=== PATIENT | female | born 1960 | race Caucasian/White ===

== ENCOUNTER 2019-10-27 03:36 | Emergency (ER) | payer BC ==
[2019-10-27] MEDS: Ketorolac 60 MG/2 ML SDV IM ONE (04:23)
[2019-10-27] MEDS: Acetaminophen/oxyCODONE 325-5 MG Tab PO STA (04:23)
[2019-10-27] MEDS: Cyclobenzaprine 10 MG Tab PO ONE (04:24)
--- NOTE | 2019-10-27 05:21 | EDM.PDOC ---
ED HPI GENERAL MEDICAL PROBLEM - General Chief Complaint: Upper Extremity Injury/Pain Stated Complaint: BACK PAIN Time Seen by Provider: 10/27/19 03:40 Source of Information: Reports: Patient History Limitations: Reports: No Limitations - History of Present Illness INITIAL COMMENTS - FREE TEXT/NARRATIVE: Patient presented to the ED because of bilateral rib pain and upper back pain. She tripped and fell 6 days ago but she is able to cath herself before falling. She went to see the chiro yesterday and took 2 hydro 5/325 prescribed by her provider for her hip pain but didn't provide any relief. The pain is 10/10 and is worse with breathing and movements. posterior chest/rib Pain Score (Numeric/FACES): 10 - Related Data Allergies Allergy/AdvReac Type Severity Reaction Status Date / Time ciprofloxacin [From Cipro] Allergy Cannot Verified 10/27/19 03:51 Remember ciprofloxacin HCl Allergy Cannot Verified 10/27/19 03:51 [From Cipro] Remember Home Meds: Home Meds Albuterol Sulfate [Albuterol Sulfate HFA] 18 gm IH 06/23/13 [History] Estrogen,Con/M-Progest Acet [Prempro 0.45-1.5 MG] 1 each PO DAILY 06/23/13 [ History] Fluticasone/Salmeterol [Advair 250-50 Diskus] 2 puff INH BID 06/23/13 [History] Cyclobenzaprine [Flexeril] 10 mg PO TID PRN #15 tab 10/27/19 [Rx] Naproxen 500 mg PO BID #15 tablet 10/27/19 [Rx] Past Medical History Cardiovascular History: Reports: Hypertension 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 Social & Family History - Family History Family Medical History: Noncontributory - Tobacco Use Smoking Status *Q: Never Smoker Second Hand Smoke Exposure: No - Caffeine Use Caffeine Use: Reports: None - Recreational Drug Use Recreational Drug Use: No Review of Systems - Review of Systems Review Of Systems: See Below Constitutional: Reports: No Symptoms Ears: Reports: No Symptoms Nose: Reports: No Symptoms Mouth/Throat: Reports: No Symptoms Respiratory: Reports: No Symptoms Cardiovascular: Reports: No Symptoms Musculoskeletal: Reports: Back Pain Skin: Reports: No Symptoms Neurological: Reports: No Symptoms Psychiatric: Reports: No Symptoms ED EXAM, GENERAL - Physical Exam Exam: See Below Exam Limited By: No Limitations General Appearance: Alert, No Apparent Distress Nose: Normal Inspection, Normal Mucosa Throat/Mouth: Normal Inspection, Normal Lips Head: Atraumatic, Normocephalic Neck: Normal Inspection, Supple, Non-Tender Respiratory/Chest: No Respiratory Distress, Lungs Clear, Normal Breath Sounds Cardiovascular: Normal Peripheral Pulses, Regular Rate, Rhythm, No Edema, No Gallop GI/Abdominal: Normal Bowel Sounds, Soft, Non-Tender, No Organomegaly Back Exam: Muscle Spasm, Vertebral Tenderness Extremities: Normal Inspection, Normal Range of Motion Course - Vital Signs Text/Narrative:: chest/ribs/thoracic spine xray-neg toradol 60 mg IM x 1 percocet 5/325, 2 po x1 flexeril 10 mg po x1 Last Recorded V/S: Last Vital Signs Temp 36.7 C 10/27/19 03:45 Pulse 57 L 10/27/19 03:45 Resp 18 10/27/19 03:45 BP 211/98 H 10/27/19 03:45 Pulse Ox 95 10/27/19 03:45 - Orders/Labs/Meds Orders: Active Orders 24 hr Category Date Time Status Ribs 3V w Chest Bi [CR] Stat Exams 10/27/19 04:20 Taken Thoracic Spine 3V [CR] Stat Exams 10/27/19 04:14 Taken Meds: Medications Discontinued Medications Generic Name Dose Route Start Last Admin Trade Name Gary PRN Reason Stop Dose Admin Cyclobenzaprine HCl 10 mg 10/27/19 04:15 10/27/19 04:24 Flexeril PO 10/27/19 04:16 10 mg ONETIME ONE Administration Ketorolac Tromethamine 60 mg 10/27/19 04:15 10/27/19 04:23 Toradol IM 10/27/19 04:16 60 mg ONETIME ONE Administration Oxycodone/Acetaminophen 2 tab 10/27/19 04:15 10/27/19 04:23 Percocet 325-5 Mg PO 10/27/19 04:16 2 tab NOW STA Administration Departure - Departure Time of Disposition: 05:30 Disposition: Home, Self-Care 01 Condition: Good Clinical Impression: Thoracic sprain, Musculoskeletal pain - Discharge Information Prescriptions: Cyclobenzaprine [Flexeril] 10 mg PO TID PRN #15 tab PRN Reason: Muscle Spasm Naproxen 500 mg PO BID #15 tablet Referrals: Mary Jennings, MECHANICAL PRODUCT DESIGN ENGINEER [Primary Care Provider] - Additional Instructions: Please read discharge instructions on sprain and muscle pain Apply ice twice daily Naproxen 500 mg Twice daily for 7 days Flexeril 10 mg 3 times daily as needed for muscle spasm Hydrocodone 5/325, 1-2 tablets every 4-6 hours as needed for sever pain that you can't handle Follow up if symptoms persist Sepsis Event Note - Evaluation Sepsis Screening Result: No Definite Risk - Focused Exam Vital Signs: Vital Signs Temp Pulse Resp BP Pulse Ox 10/27/19 03:45 36.7 C 57 L 18 211/98 H 95 Date Exam was Performed: 10/27/19 Time Exam was Performed: 05:16 - My Orders Last 24 Hours: My Active Orders 10/27/19 04:14 Thoracic Spine 3V [CR] Stat 10/27/19 04:20 Ribs 3V w Chest Bi [CR] Stat - Assessment/Plan Last 24 Hours: My Active Orders 10/27/19 04:14 Thoracic Spine 3V [CR] Stat 10/27/19 04:20 Ribs 3V w Chest Bi [CR] Stat
[2019-10-27 05:23] VITALS: BP 168/87; PULSE 51
== END 2019-10-27 05:30 | disposition home or self-care (01) ==
LOC: FB.ED 03:36
DX: S23.3XXA Sprain of ligaments of thoracic spine, initial encounter (principal); J45.909 Unspecified asthma, uncomplicated; I10 Essential (primary) hypertension; Z88.1 Allergy status to other antibiotic agents; Z79.899 Other long term (current) drug therapy; W01.0XXA Fall on same level from slipping, tripping and stumbling without subsequent striking against object, initial encounter
CPT/HCPCS: 71111; 72072; 96372; 99283; A9270-GY; J1885

== ENCOUNTER 2020-04-05 16:14 | Inpatient (IN) | payer BC ==
[2020-04-05] MEDS ORDERED: REMDESIVIR 200 MG in Sodium Chloride 0.9% 250 ML IV ONE (17:03)
[2020-04-05] MEDS ORDERED: Albuterol 8 GM Inhaler INH PRN (17:08)
--- NOTE | 2020-04-05 17:15 | PCM.HP.2 ---
H&P History of Present Illness - General Date of Service: 04/05/20 Admit Problem/Dx: Admission Diagnosis/Problem Admission Diagnosis/Problem Viral infection Source of Information: Patient - History of Present Illness Initial Comments - Free Text/Narative: Tina started having sore throat, runny nose on 03/25, over the weekend developed vomiting and diarrhea which resolved Wednesday. Spoke with her PCP on Wednesday who advised her come in for drive-up COVID testing, her test results came back positive on 04/03. Had low grade fevers since last week, 99F but starting yesterday temp was up to 101F and seemed to break early this morning was 97F but then could feel it go up as day progressed. Since Wed pm she has been progressively getting more short of breath, wheezing, using her nebulizer treatments more often. Present to Walk-In clinic this afternoon, chest x-ray showed poor inspiration view but questionable infiltrate in right lower lobe. No other labs were done. She was saturating in the 80s in Walk-In, so direct admission to floor was done. History of Asthma. - Related Data Allergies/Adverse Reactions: Allergies Allergy/AdvReac Type Severity Reaction Status Date / Time ciprofloxacin [From Cipro] Allergy Cannot Verified 04/05/20 16:52 Remember ciprofloxacin HCl Allergy Cannot Verified 04/05/20 16:52 [From Cipro] Remember Home Medications: Home Meds Albuterol Sulfate [Albuterol Sulfate HFA] 2 puff IH Q4H PRN 06/23/13 [History] Lisinopril/Hydrochlorothiazide [Lisinopril-Hctz 20-25 mg Tab] 1 each PO DAILY 04/05/20 [History] Mometasone/Formoterol [Dulera 200 MCG/5 MCG] 2 inh INH DAILY 04/05/20 [History] Montelukast [Singulair] 10 mg PO BEDTIME 04/05/20 [History] Past Medical History Cardiovascular History: Reports: Hypertension 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 Social & Family History - Family History Family Medical History: No Pertinent Family History - Tobacco Use Tobacco Use Status *Q: Never Tobacco User - Caffeine Use Caffeine Use: Reports: None - Alcohol Use Days Per Week of Alcohol Use: 7 Number of Drinks Per Day: 3 Total Drinks Per Week: 21 Date of Last Drink: 03/22/20 - Recreational Drug Use Recreational Drug Use: No H&P Review of Systems - Review of Systems: Review Of Systems: Comprehensive ROS is negative, except as noted in HPI. Exam - Exam Exam: See Below - Vital Signs Weight: 171 lb 12.8 oz - Exam Quality Assessment: Supplemental Oxygen General: Alert, Oriented, Cooperative, Mild Distress HEENT: PERRLA, Conjunctiva Clear, Mucosa Moist & Helix Lungs: Normal Respiratory Effort, Decreased Breath Sounds (bibasilar), Crackles (RLL). No: Wheezing Cardiovascular: Regular Rate, Regular Rhythm. No: Systolic Murmur GI/Abdominal Exam: Normal Bowel Sounds, Soft, Non-Tender, No Distention (Female) Exam: Deferred Rectal (Female) Exam: Deferred Extremities: No Pedal Edema, Normal Capillary Refill - Problem List (1) COVID-19 virus detected SNOMED Code(s): 2881974166385131 ICD Code: U07.1 - COVID-19 Status: Acute Current Visit: Yes (2) Viral pneumonia SNOMED Code(s): 69024808 ICD Code: J12.9 - VIRAL PNEUMONIA, UNSPECIFIED Status: Acute Current Visit: Yes (3) Asthma SNOMED Code(s): 170570915 ICD Code: J45.909 - UNSPECIFIED ASTHMA, UNCOMPLICATED Status: Chronic Current Visit: Yes (4) Hypertension SNOMED Code(s): 74295442 ICD Code: I10 - ESSENTIAL (PRIMARY) HYPERTENSION Status: Chronic Current Visit: Yes Qualifiers: Hypertension type: essential hypertension Qualified Code(s): I10 - Essential (primary) hypertension (5) Seasonal allergies SNOMED Code(s): 090348186 ICD Code: J30.2 - OTHER SEASONAL ALLERGIC RHINITIS Status: Chronic Current Visit: Yes Problem List Initiated/Reviewed/Updated: Yes Orders Last 24hrs: Active Orders 24 hr Category Date Time Status Patient Status [ADT] Routine ADT 04/05/20 17:03 Ordered Blood Glucose Check, Bedside [RC] TIDMEALS Care 04/05/20 17:03 Ordered Nurse Communication: Isolation [RC] ASDIRECTED Care 04/05/20 17:04 Ordered Oxygen Therapy [RC] PRN Care 04/05/20 17:03 Ordered Positioning, Patient [RC] ASDIRECTED Care 04/05/20 17:03 Ordered RT Post Treatment Assessment [RC] Click to Edit Care 04/05/20 17:09 Ordered Up ad Susan [RC] ASDIRECTED Care 04/05/20 17:03 Ordered VTE/DVT Education [RC] Per Unit Routine Care 04/05/20 17:03 Ordered Vital Signs [RC] Q4H Care 04/05/20 17:03 Ordered Regular Diet [DIET] Diet 04/05/20 Dinner Ordered BASIC METABOLIC PANEL,BMP [CHEM] Stat Lab 04/05/20 17:03 Ordered CBC WITH AUTO DIFF [HEME] Stat Lab 04/05/20 17:03 Ordered D-DIMER QUANTITATIVE [COAG] Stat Lab 04/05/20 17:04 Ordered HEPATIC FUNCTION PANEL,HFP [CHEM] Stat Lab 04/05/20 17:03 Ordered Acetaminophen [TylenoL] Med 04/05/20 17:03 Ordered 650 mg PO Q4H PRN Albuterol [Ventolin HFA] Med 04/05/20 17:08 Ordered 2 puff INH Q4H PRN Enoxaparin [Lovenox] Med 04/05/20 17:15 Ordered 40 mg SUBCUT Q24H Lisinopril/Hydrochlorothiazide [Lisinopril-Hctz 20-25 Med 04/06/20 09:00 Ordered mg Tab] 1 each PO DAILY Mometasone/Formoterol [Dulera 200-5 MCG] Med 04/06/20 09:00 Ordered 2 puff IH DAILY Montelukast [Singulair] Med 04/05/20 21:00 Ordered 10 mg PO BEDTIME Remdesivir (Eua) [Remdesivir (EUA)] 100 mg Med 04/06/20 18:00 Ordered Sodium Chloride 0.9% [Normal Saline] 100 ml IV Q24H Remdesivir (Eua) [Remdesivir (EUA)] 200 mg Med 04/05/20 17:03 Ordered Sodium Chloride 0.9% [Normal Saline] 250 ml IV ONETIME Sodium Chloride 0.9% [Saline Flush] Med 04/05/20 17:03 Ordered 10 ml FLUSH ASDIRECTED PRN dexAMETHasone Med 04/05/20 17:15 Ordered 6 mg PO DAILY Antiembolic Hose [OM.PC] Per Unit Routine Oth 04/05/20 17:08 Ordered Isolation [COMM] Stat Ot 04/05/20 17:03 Ordered Saline Lock Insert [OM.PC] Routine Oth 04/05/20 17:03 Ordered Resuscitation Status Routine Resus Stat 04/05/20 17:03 Ordered Assessment/Plan Comment:: 1. Admit for inpatient treatment of COVID viral pneumonia: Remdesivir 200 mg IV x 1, 100 mg IV daily x 4 doses starting tomorrow. Dexamethasone 6 mg PO start now and in the morning. Oxygen therapy to keep sats >90%. Isolation precautions. CBC, CMP, D Dimer ordered. 2. Asthma: Continue Dulera daily and Albuterol as needed. 3. Seasonal allergies: continue Singulair 10 mg at bedtime. 4. Hypertension: continue Lisinopril/HCTZ 20/25 mg daily. 5. Regular diet. 6. Up ad susan in room. 7. DVT prophylaxis: Lovenox 40 mg SQ daily while awaiting D Dimer results. 8. CODE STATUS: FULL. - Mortality Measure Prognosis:: Good
[2020-04-05] MEDS: Dexamethasone 4 MG Tab PO SCH (18:19)
[2020-04-05] MEDS: Enoxaparin 40 MG/0.4 ML Syringe SUBCUT SCH (18:19)
[2020-04-05] MEDS: Sodium Chloride 0.9% 10 ML Syringe FLUSH PRN (18:41)
[2020-04-05] MEDS: Acetaminophen 325 MG Tab PO PRN (20:43)
[2020-04-05] MEDS: Montelukast 10 MG Tab PO SCH (22:09)
[2020-04-06] MEDS: Formoterol/Mometasone 200-5 MCG 8.8 GM Inhaler IH SCH (08:41)
[2020-04-06] MEDS: Hydrochlorothiazide/Lisinopril 12.5-10 MG Tab PO SCH (08:43)
[2020-04-06] MEDS: Dexamethasone 4 MG Tab PO SCH (08:44)
[2020-04-06] MEDS: Sodium Chloride 0.9% 1,000 ML IV SCH ×2 (10:35→20:16)
[2020-04-06] MEDS: Acetaminophen 325 MG Tab PO PRN (16:02)
--- NOTE | 2020-04-06 16:27 | PCM.PN ---
- General Info Date of Service: 04/06/20 Subjective Update: Tina state she thinks her breathing is better, still feels really tight. Coughing with deep breathing. Eating and drinking but has not urinated since she was admitted. No bowel movements. - Patient Data Vitals - Most Recent: Last Vital Signs Temp 99.0 F 04/06/20 15:54 Pulse 57 L 04/06/20 15:54 Resp 20 04/06/20 15:54 BP 114/65 04/06/20 15:54 Pulse Ox 91 L 04/06/20 15:54 Weight - Most Recent: 171 lb 12.8 oz Lab Results Last 24 Hours: Laboratory Results - last 24 hr 04/05/20 04/05/20 04/05/20 Range/Units 17:30 17:30 17:30 WBC 4.4 (3.0-10.3) x10-3/uL RBC 4.83 (3.60-5.20) x10(6)uL Hgb 12.3 (11.4-15.5) g/dL Hct 38.5 (34.2-48.2) % MCV 79.6 (76.7-100.5) fL MCH 25.4 (23.9-33.9) pg MCHC 31.9 (31.9-34.8) g/dL RDW 16.6 H (12.3-16.5) % Plt Count 243 (151-488) x10(3)uL MPV 7.2 (7.1-12.4) fL Neut % (Auto) 78.6 H (30.8-76.2) % Lymph % (Auto) 13.5 L (18.4-52.1) % [place] % (Auto) 7.6 (4.4-15.7) % Eos % (Auto) 0.0 L (0.6-8.1) % Baso % (Auto) 0.3 (0.2-1.5) % Neut # (Auto) 3.5 (1.5-6.3) x10-3/uL Lymph # (Auto) 0.6 L (1.0-4.4) x10-3/uL [place] # (Auto) 0.3 (0.3-1.0) x10-3/uL Eos # (Auto) 0.0 (0.0-0.8) x10-3/uL Baso # (Auto) 0.0 (0.0-0.1) x10-3/uL APTT 25.9 (24.4-33.2) SECONDS D-Dimer, Quantitative 0.37 (0.0-0.59) mg/LFEU Sodium 143 (135-145) mmol/L Potassium 3.6 (3.5-5.3) mmol/L Chloride 104 (100-110) mmol/L Carbon Dioxide 29 (21-32) mmol/L BUN 23 H (7-18) mg/dL Creatinine 1.0 (0.55-1.02) mg/dL Est Cr Clr Drug Dosing 47.91 mL/min Estimated GFR (MDRD) 57 L (>60) BUN/Creatinine Ratio 23.0 H (9-20) Glucose 94 (80-116) mg/dL POC Glucose (74-100) mg/dL Calcium 8.8 (8.6-10.2) mg/dL Total Bilirubin 0.4 (0.1-1.3) mg/dL AST 21 D (5-25) IU/L ALT 28 (12-36) U/L Alkaline Phosphatase 67 (56-112) IU/L Total Protein 7.3 (6.0-8.0) g/dL Albumin 3.3 L (3.5-5.2) g/dL Globulin 4.0 g/dL Albumin/Globulin Ratio 0.8 /14/20 Range/Units 06:03 WBC (3.0-10.3) x10-3/uL RBC (3.60-5.20) x10(6)uL Hgb (11.4-15.5) g/dL Hct (34.2-48.2) % MCV (76.7-100.5) fL MCH (23.9-33.9) pg MCHC (31.9-34.8) g/dL RDW (12.3-16.5) % Plt Count (151-488) x10(3)uL MPV (7.1-12.4) fL Neut % (Auto) (30.8-76.2) % Lymph % (Auto) (18.4-52.1) % [place] % (Auto) (4.4-15.7) % Eos % (Auto) (0.6-8.1) % Baso % (Auto) (0.2-1.5) % Neut # (Auto) (1.5-6.3) x10-3/uL Lymph # (Auto) (1.0-4.4) x10-3/uL [place] # (Auto) (0.3-1.0) x10-3/uL Eos # (Auto) (0.0-0.8) x10-3/uL Baso # (Auto) (0.0-0.1) x10-3/uL APTT (24.4-33.2) SECONDS D-Dimer, Quantitative (0.0-0.59) mg/LFEU Sodium (135-145) mmol/L Potassium (3.5-5.3) mmol/L Chloride (100-110) mmol/L Carbon Dioxide (21-32) mmol/L BUN (7-18) mg/dL Creatinine (0.55-1.02) mg/dL Est Cr Clr Drug Dosing mL/min Estimated GFR (MDRD) (>60) BUN/Creatinine Ratio (9-20) Glucose (80-116) mg/dL POC Glucose 133 H (74-100) mg/dL Calcium (8.6-10.2) mg/dL Total Bilirubin (0.1-1.3) mg/dL AST (5-25) IU/L ALT (12-36) U/L Alkaline Phosphatase (56-112) IU/L Total Protein (6.0-8.0) g/dL Albumin (3.5-5.2) g/dL Globulin g/dL Albumin/Globulin Ratio Med Orders - Current: Current Medications Acetaminophen (Tylenol) 650 mg PO Q4H PRN PRN Reason: Fever Greater Than 101 Last Admin: 04/06/20 16:02 Dose: 650 mg Documented by: Albuterol (Ventolin Hfa) 0 gm INH Q4H PRN PRN Reason: Shortness of Breath Dexamethasone (Dexamethasone) 6 mg PO DAILY [facility] Stop: 04/14/20 09:01 Last Admin: 04/06/20 08:44 Dose: 6 mg Documented by: Enoxaparin Sodium (Lovenox) 40 mg SUBCUT Q24H [facility] Last Admin: 04/05/20 18:19 Dose: 40 mg Documented by: Lisinopril/HCTZ (Lisinopril/Hctz 10-12.5 Mg) 2 tab PO DAILY [facility] Last Admin: 04/06/20 08:43 Dose: 2 tab Documented by: Remdesivir 100 mg/ Sodium (Chloride) 100 mls @ 100 mls/hr IV Q24H QUINTIN Stop: 04/09/20 18:59 Sodium Chloride (Normal Saline) 1,000 mls @ 125 mls/hr IV ASDIRECTED QUINTIN Stop: 04/07/20 18:29 Last Admin: 04/06/20 10:35 Dose: 125 mls/hr Documented by: Mometasone Furoate/Formoterol Fumar (Dulera 200-5 Mcg) 2 puff IH DAILY [facility] Last Admin: 04/06/20 08:41 Dose: 2 puff Documented by: Montelukast Sodium (Singulair) 10 mg PO BEDTIME [facility] Last Admin: 04/05/20 22:09 Dose: 10 mg Documented by: Sodium Chloride (Saline Flush) 10 ml FLUSH ASDIRECTED PRN PRN Reason: Keep Vein Open Last Admin: 04/05/20 18:41 Dose: 10 ml Documented by: Discontinued Medications Remdesivir 200 mg/ Sodium (Chloride) 250 mls @ 250 mls/hr IV ONETIME ONE Stop: 04/05/20 17:04 Last Admin: 04/05/20 17:33 Dose: 250 mls/hr Documented by: - Exam Quality Assessment: Supplemental Oxygen General: Alert, Oriented, Cooperative, No Acute Distress Lungs: Normal Respiratory Effort, Decreased Breath Sounds (throughout), Crackles (right base). No: Wheezing Cardiovascular: Regular Rate, Regular Rhythm GI/Abdominal Exam: Normal Bowel Sounds, Soft, Non-Tender, No Distention Sepsis Event Note - Evaluation Sepsis Screening Result: No Definite Risk - Focused Exam Vital Signs: Vital Signs Temp Pulse Resp BP BP BP Pulse Ox 04/06/20 15:54 99.0 F 57 L 20 114/65 91 L 04/06/20 13:00 98.8 F 60 18 120/78 92 L 04/06/20 09:00 98.5 F 63 18 125/80 92 L 04/06/20 08:43 118/72 04/06/20 05:00 98.9 F 57 L 18 111/74 92 L Pulse Ox 04/06/20 15:54 91 L 04/06/20 13:00 04/06/20 09:00 04/06/20 08:43 04/06/20 05:00 - Problem List & Annotations (1) COVID-19 virus detected SNOMED Code(s): 6733328954137987 Code(s): U07.1 - COVID-19 Status: Acute Current Visit: Yes (2) Viral pneumonia SNOMED Code(s): 39009479 Code(s): J12.9 - VIRAL PNEUMONIA, UNSPECIFIED Status: Acute Current Visit: Yes (3) Asthma SNOMED Code(s): 089525861 Code(s): J45.909 - UNSPECIFIED ASTHMA, UNCOMPLICATED Status: Chronic Current Visit: Yes (4) Hypertension SNOMED Code(s): 27577076 Code(s): I10 - ESSENTIAL (PRIMARY) HYPERTENSION Status: Chronic Current Visit: Yes Qualifiers: Hypertension type: essential hypertension Qualified Code(s): I10 - Essential (primary) hypertension (5) Seasonal allergies SNOMED Code(s): 314623150 Code(s): J30.2 - OTHER SEASONAL ALLERGIC RHINITIS Status: Chronic Current Visit: Yes - Problem List Review Problem List Initiated/Reviewed/Updated: Yes - My Orders Last 24 Hours: My Active Orders 04/05/20 Dinner Regular Diet [DIET] 04/05/20 17:03 Patient Status [ADT] Routine Blood Glucose Check, Bedside [RC] TIDMEALS Oxygen Therapy [RC] QSHIFT Positioning, Patient [RC] ASDIRECTED Up ad Susan [RC] ASDIRECTED Vital Signs [RC] Q4H Acetaminophen [TylenoL] 650 mg PO Q4H PRN Sodium Chloride 0.9% [Saline Flush] 10 ml FLUSH ASDIRECTED PRN Isolation [COMM] Stat Saline Lock Insert [OM.PC] Routine Resuscitation Status Routine 04/05/20 17:04 Nurse Communication: Isolation [RC] ASDIRECTED 04/05/20 17:08 Albuterol [Ventolin HFA] 0 gm INH Q4H PRN Antiembolic Hose [OM.PC] Per Unit Routine 04/05/20 17:09 RT Post Treatment Assessment [RC] Click to Edit 04/05/20 17:15 dexAMETHasone 6 mg PO DAILY 04/05/20 18:00 Enoxaparin [Lovenox] 40 mg SUBCUT Q24H 04/05/20 21:00 Montelukast [Singulair] 10 mg PO BEDTIME 04/06/20 09:00 Hydrochlorothiazide/Lisinopril [Lisinopril/HCTZ 10-12.5 MG] 2 tab PO DAILY Mometasone/Formoterol [Dulera 200-5 MCG] 2 puff IH DAILY 04/06/20 10:30 Sodium Chloride 0.9% [Normal Saline] 1,000 ml IV ASDIRECTED 04/06/20 18:00 Remdesivir (Eua) [Remdesivir (EUA)] 100 mg Sodium Chloride 0.9% [Normal Saline] 100 ml IV Q24H 04/07/20 06:00 COMPREHENSIVE METABOLIC PN,CMP [CHEM] Routine - Plan Plan:: 1. COVID viral pneumonia: Remdesivir 100 mg IV daily day 2. Dexamethasone 6 mg day 2. Oxygen therapy to keep sats >90%. Isolation precautions. CBC normal. BUN elevated, D-Dimer normal. Start NS at 125 ml/hr x 2 liters. Reassess and adjust treatment as necessary. 2. Asthma: Continue Dulera daily and Albuterol as needed. 3. Seasonal allergies: continue Singulair 10 mg at bedtime. 4. Hypertension: continue Lisinopril/HCTZ 20/25 mg daily. 5. Regular diet. 6. Up ad susan in room. 7. DVT prophylaxis: Lovenox 40 mg SQ daily. 8. CODE STATUS: FULL.
[2020-04-06] MEDS: Enoxaparin 40 MG/0.4 ML Syringe SUBCUT SCH (17:22)
[2020-04-06] MEDS: REMDESIVIR 100 MG in Sodium Chloride 0.9% 100 ML IV SCH (17:22)
[2020-04-06] MEDS: Montelukast 10 MG Tab PO SCH (20:16)
[2020-04-07] MEDS: Sodium Chloride 0.9% 1,000 ML IV SCH (04:54)
[2020-04-07] MEDS: Dexamethasone 4 MG Tab PO SCH (08:36)
[2020-04-07] MEDS: Formoterol/Mometasone 200-5 MCG 8.8 GM Inhaler IH SCH (08:36)
[2020-04-07] MEDS: Hydrochlorothiazide/Lisinopril 12.5-10 MG Tab PO SCH (08:48)
[2020-04-07] MEDS: Potassium Chloride 20 MEQ Tab.ER PO SCH (09:40)
--- NOTE | 2020-04-07 11:20 | PCM.PN ---
- General Info Date of Service: 04/07/20 Subjective Update: Her breathing is better, states she doesn't cough with deep breathing now and doesn't feel as tight. Inhalers are helping. She was weaned off oxygen but got up to shower and desaturated down to 88% so placed back on oxygen. Her sugars are staying in low 100s with Dexamethasone. Still has loss of taste/smell. Appetite improving, drinking and eating a little more. - Patient Data Vitals - Most Recent: Last Vital Signs Temp 98.9 F 04/07/20 05:00 Pulse 59 L 04/07/20 05:00 Resp 18 04/07/20 05:00 BP 117/78 04/07/20 08:48 Pulse Ox 90 L 04/07/20 05:00 Weight - Most Recent: 171 lb 12.8 oz Lab Results Last 24 Hours: Laboratory Results - last 24 hr 04/06/20 04/06/20 04/07/20 Range/Units : 17:12 05:38 Sodium (135-145) mmol/L Potassium (3.5-5.3) mmol/L Chloride (100-110) mmol/L Carbon Dioxide (21-32) mmol/L BUN (7-18) mg/dL Creatinine (0.55-1.02) mg/dL Est Cr Clr Drug Dosing mL/min Estimated GFR (MDRD) (>60) BUN/Creatinine Ratio (9-20) Glucose (80-116) mg/dL POC Glucose 107 H 120 H 94 (74-100) mg/dL Calcium (8.6-10.2) mg/dL Total Bilirubin (0.1-1.3) mg/dL AST (5-25) IU/L ALT (12-36) U/L Alkaline Phosphatase (56-112) IU/L Total Protein (6.0-8.0) g/dL Albumin (3.5-5.2) g/dL Globulin g/dL Albumin/Globulin Ratio 04/07/20 Range/Units 06:30 Sodium 144 (135-145) mmol/L Potassium 3.3 L (3.5-5.3) mmol/L Chloride 107 (100-110) mmol/L Carbon Dioxide 29 (21-32) mmol/L BUN 17 (7-18) mg/dL Creatinine 0.8 (0.55-1.02) mg/dL Est Cr Clr Drug Dosing 59.89 mL/min Estimated GFR (MDRD) > 60 (>60) BUN/Creatinine Ratio 21.3 H (9-20) Glucose 91 (80-116) mg/dL POC Glucose (74-100) mg/dL Calcium 7.6 L (8.6-10.2) mg/dL Total Bilirubin 0.2 (0.1-1.3) mg/dL AST 14 D (5-25) IU/L ALT 19 D (12-36) U/L Alkaline Phosphatase 47 L (56-112) IU/L Total Protein 6.0 (6.0-8.0) g/dL Albumin 2.5 L (3.5-5.2) g/dL Globulin 3.5 g/dL Albumin/Globulin Ratio 0.7 Med Orders - Current: Current Medications Acetaminophen (Tylenol) 650 mg PO Q4H PRN PRN Reason: Fever Greater Than 101 Last Admin: 04/06/20 16:02 Dose: 650 mg Documented by: Albuterol (Ventolin Hfa) 0 gm INH Q4H PRN PRN Reason: Shortness of Breath Dexamethasone (Dexamethasone) 6 mg PO DAILY [facility] Stop: 04/14/20 09:01 Last Admin: 04/07/20 08:36 Dose: 6 mg Documented by: Enoxaparin Sodium (Lovenox) 40 mg SUBCUT Q24H [facility] Last Admin: 04/06/20 17:22 Dose: 40 mg Documented by: Lisinopril/HCTZ (Lisinopril/Hctz 10-12.5 Mg) 2 tab PO DAILY [facility] Last Admin: 04/07/20 08:48 Dose: 2 tab Documented by: Remdesivir 100 mg/ Sodium (Chloride) 100 mls @ 100 mls/hr IV Q24H [facility] Stop: 04/09/20 18:59 Last Admin: 04/06/20 17:22 Dose: 100 mls/hr Documented by: Sodium Chloride (Normal Saline) 1,000 mls @ 125 mls/hr IV ASDIRECTED [facility] Stop: 04/07/20 18:29 Last Infusion: 04/07/20 04:16 Dose: Infused Documented by: Mometasone Furoate/Formoterol Fumar (Dulera 200-5 Mcg) 2 puff IH DAILY [facility] Last Admin: 04/07/20 08:36 Dose: 2 puff Documented by: Montelukast Sodium (Singulair) 10 mg PO BEDTIME [facility] Last Admin: 04/06/20 20:16 Dose: 10 mg Documented by: Potassium Chloride (Klor-Con M20) 20 meq PO DAILY [facility] Last Admin: 04/07/20 09:40 Dose: 20 meq Documented by: Sodium Chloride (Saline Flush) 10 ml FLUSH ASDIRECTED PRN PRN Reason: Keep Vein Open Last Admin: 04/05/20 18:41 Dose: 10 ml Documented by: Discontinued Medications Remdesivir 200 mg/ Sodium (Chloride) 250 mls @ 250 mls/hr IV ONETIME ONE Stop: 04/05/20 17:04 Last Admin: 04/05/20 17:33 Dose: 250 mls/hr Documented by: - Exam General: Alert, Oriented, Cooperative, No Acute Distress Lungs: Normal Respiratory Effort, Decreased Breath Sounds (RLL, diminished in other lobes but improved from initial exam.). No: Wheezing Cardiovascular: Regular Rate, Regular Rhythm GI/Abdominal Exam: Normal Bowel Sounds, Soft, Non-Tender, No Distention Sepsis Event Note - Evaluation Sepsis Screening Result: No Definite Risk - Focused Exam Vital Signs: Vital Signs Temp Pulse Resp BP BP BP Pulse Ox 04/07/20 08:48 117/78 04/07/20 05:00 98.9 F 59 L 18 119/67 90 L 04/07/20 01:00 98.8 F 55 L 18 118/75 93 L 04/07/20 00:00 Pulse Ox 04/07/20 08:48 04/07/20 05:00 04/07/20 01:00 04/07/20 00:00 93 L - Problem List & Annotations (1) COVID-19 virus detected SNOMED Code(s): 4664820420692279 Code(s): U07.1 - COVID-19 Status: Acute Current Visit: Yes (2) Viral pneumonia SNOMED Code(s): 38124923 Code(s): J12.9 - VIRAL PNEUMONIA, UNSPECIFIED Status: Acute Current Visit: Yes (3) Asthma SNOMED Code(s): 404069836 Code(s): J45.909 - UNSPECIFIED ASTHMA, UNCOMPLICATED Status: Chronic Current Visit: Yes (4) Hypertension SNOMED Code(s): 97254616 Code(s): I10 - ESSENTIAL (PRIMARY) HYPERTENSION Status: Chronic Current Visit: Yes Qualifiers: Hypertension type: essential hypertension Qualified Code(s): I10 - Essential (primary) hypertension (5) Seasonal allergies SNOMED Code(s): 394996005 Code(s): J30.2 - OTHER SEASONAL ALLERGIC RHINITIS Status: Chronic Current Visit: Yes - Problem List Review Problem List Initiated/Reviewed/Updated: Yes - My Orders Last 24 Hours: My Active Orders 04/06/20 10:30 Sodium Chloride 0.9% [Normal Saline] 1,000 ml IV ASDIRECTED 04/06/20 18:00 Remdesivir (Eua) [Remdesivir (EUA)] 100 mg Sodium Chloride 0.9% [Normal Saline] 100 ml IV Q24H 04/07/20 09:15 Potassium Chloride [Klor-Con M20] 20 meq PO DAILY 04/08/20 06:00 ALANINE AMINOTRANSFERASE,ALT [CHEM] Routine ASPARTATE AMNIOTRANSFERASE,AST [CHEM] Routine POTASSIUM,K [CHEM] Routine - Plan Plan:: 1. COVID viral pneumonia: Remdesivir 100 mg IV daily day 3. Dexamethasone 6 mg day 3. Oxygen therapy to keep sats >90%. Isolation precautions. Potassium 3.3 today, given Potassium 20 mEq po daily, recheck tomorrow. 2. Asthma: Continue Dulera daily and Albuterol as needed. 3. Continue to monitor and adjust treatments as necessary.
[2020-04-07] MEDS ORDERED: Heparin Sodium 5,000 Units/ML Vial SUBCUT ONE (17:27)
[2020-04-07] MEDS: REMDESIVIR 100 MG in Sodium Chloride 0.9% 100 ML IV SCH (17:27)
[2020-04-07] MEDS: Enoxaparin 40 MG/0.4 ML Syringe SUBCUT SCH (18:05)
[2020-04-07] MEDS: Sodium Chloride 0.9% 10 ML Syringe FLUSH PRN (18:30)
[2020-04-07] MEDS: Montelukast 10 MG Tab PO SCH (21:15)
[2020-04-08] MEDS: Dexamethasone 2 MG Tab PO SCH (08:38)
[2020-04-08] MEDS: Potassium Chloride 20 MEQ Tab.ER PO SCH (08:38)
[2020-04-08] MEDS: Formoterol/Mometasone 200-5 MCG 8.8 GM Inhaler IH SCH (08:39)
[2020-04-08] MEDS: Hydrochlorothiazide/Lisinopril 12.5-10 MG Tab PO SCH (08:39)
--- NOTE | 2020-04-08 12:34 | PCM.PN ---
- General Info Date of Service: 04/08/20 Subjective Update: Tina states she is feeling better, still gets short of breath when she is up to the bathroom. Still some loss of taste. No vomiting or diarrhea. Fatigue improving. - Patient Data Vitals - Most Recent: Last Vital Signs Temp 98.8 F 04/08/20 05:00 Pulse 50 L 04/08/20 05:00 Resp 18 04/08/20 05:00 BP 117/76 04/08/20 08:39 Pulse Ox 93 L 04/08/20 05:00 Weight - Most Recent: 171 lb 12.8 oz Lab Results Last 24 Hours: Laboratory Results - last 24 hr 04/07/20 04/07/20 04/08/20 Range/Units 11:18 16:45 05:46 Potassium (3.5-5.3) mmol/L POC Glucose 130 H 134 H 91 (74-100) mg/dL AST (5-25) IU/L ALT (12-36) U/L 04/08/20 04/08/20 Range/Units 07:00 11:49 Potassium 3.5 (3.5-5.3) mmol/L POC Glucose 118 H (74-100) mg/dL AST 18 D (5-25) IU/L ALT 27 D (12-36) U/L Med Orders - Current: Current Medications Acetaminophen (Tylenol) 650 mg PO Q4H PRN PRN Reason: Fever Greater Than 101 Last Admin: 04/06/20 16:02 Dose: 650 mg Documented by: Albuterol (Ventolin Hfa) 0 gm INH Q4H PRN PRN Reason: Shortness of Breath Dexamethasone (Dexamethasone) 6 mg PO DAILY [facility] Stop: 04/14/20 09:01 Last Admin: 04/08/20 08:38 Dose: 6 mg Documented by: Enoxaparin Sodium (Lovenox) 40 mg SUBCUT Q24H [facility] Last Admin: 04/07/20 18:05 Dose: Not Given Documented by: Lisinopril/HCTZ (Lisinopril/Hctz 10-12.5 Mg) 2 tab PO DAILY [facility] Last Admin: 04/08/20 08:39 Dose: 2 tab Documented by: Remdesivir 100 mg/ Sodium (Chloride) 100 mls @ 100 mls/hr IV Q24H [facility] Stop: 04/09/20 18:59 Last Admin: 04/07/20 17:27 Dose: 100 mls/hr Documented by: Mometasone Furoate/Formoterol Fumar (Dulera 200-5 Mcg) 2 puff IH DAILY [facility] Last Admin: 04/08/20 08:39 Dose: 2 puff Documented by: Montelukast Sodium (Singulair) 10 mg PO BEDTIME [facility] Last Admin: 04/07/20 21:15 Dose: 10 mg Documented by: Potassium Chloride (Klor-Con M20) 20 meq PO DAILY [facility] Last Admin: 04/08/20 08:38 Dose: 20 meq Documented by: Sodium Chloride (Saline Flush) 10 ml FLUSH ASDIRECTED PRN PRN Reason: Keep Vein Open Last Admin: 04/07/20 18:30 Dose: 10 ml Documented by: Discontinued Medications Dexamethasone (Dexamethasone) 6 mg PO DAILY [facility] Stop: 04/14/20 09:01 Last Admin: 04/07/20 08:36 Dose: 6 mg Documented by: Heparin Sodium (Porcine) (Heparin Sodium) 5,000 units SUBCUT ONETIME ONE Stop: 04/07/20 17:28 Last Admin: 04/07/20 18:13 Dose: 5,000 units Documented by: Remdesivir 200 mg/ Sodium (Chloride) 250 mls @ 250 mls/hr IV ONETIME ONE Stop: 04/05/20 17:04 Last Admin: 04/05/20 17:33 Dose: 250 mls/hr Documented by: Sodium Chloride (Normal Saline) 1,000 mls @ 125 mls/hr IV ASDIRECTED [facility] Stop: 04/07/20 18:29 Last Infusion: 04/07/20 04:16 Dose: Infused Documented by: - Exam Quality Assessment: Supplemental Oxygen General: Alert, Oriented, Cooperative, No Acute Distress Lungs: Clear to Auscultation, Normal Respiratory Effort, Decreased Breath Sounds (RLL>LLL), Crackles. No: Wheezing Cardiovascular: Regular Rate, Regular Rhythm GI/Abdominal Exam: Normal Bowel Sounds, Soft, Non-Tender, No Distention Extremities: No Pedal Edema Sepsis Event Note - Evaluation Sepsis Screening Result: No Definite Risk - Focused Exam Vital Signs: Vital Signs Temp Pulse Resp BP BP Pulse Ox 04/08/20 08:39 117/76 04/08/20 05:00 98.8 F 50 L 18 138/84 93 L 04/08/20 01:00 98.7 F 44 L 16 134/78 94 L - Problem List & Annotations (1) COVID-19 virus detected SNOMED Code(s): 2180993529677049 Code(s): U07.1 - COVID-19 Status: Acute Current Visit: Yes (2) Viral pneumonia SNOMED Code(s): 86970968 Code(s): J12.9 - VIRAL PNEUMONIA, UNSPECIFIED Status: Acute Current Visit: Yes (3) Asthma SNOMED Code(s): 478545728 Code(s): J45.909 - UNSPECIFIED ASTHMA, UNCOMPLICATED Status: Chronic Current Visit: Yes (4) Hypertension SNOMED Code(s): 28914455 Code(s): I10 - ESSENTIAL (PRIMARY) HYPERTENSION Status: Chronic Current Visit: Yes Qualifiers: Hypertension type: essential hypertension Qualified Code(s): I10 - Essential (primary) hypertension (5) Seasonal allergies SNOMED Code(s): 776015453 Code(s): J30.2 - OTHER SEASONAL ALLERGIC RHINITIS Status: Chronic Current Visit: Yes - Problem List Review Problem List Initiated/Reviewed/Updated: Yes - My Orders Last 24 Hours: My Active Orders 04/08/20 09:00 dexAMETHasone 6 mg PO DAILY - Plan Plan:: 1. COVID viral pneumonia: Remdesivir 100 mg IV daily day 4. Dexamethasone 6 mg day 4. Oxygen therapy to keep sats >90%. Isolation precautions. Potassium 3.5 today, discontinue potassium. If unable to wean off oxygen, may need to set her up for home oxygen, will finish her Remdesivir tomorrow evening. Possibly home wed. 2. Asthma: Continue Dulera daily and Albuterol as needed. 3. Continue to monitor and adjust treatments as necessary.
[2020-04-08] MEDS: REMDESIVIR 100 MG in Sodium Chloride 0.9% 100 ML IV SCH (17:43)
[2020-04-08] MEDS: Enoxaparin 40 MG/0.4 ML Syringe SUBCUT SCH (17:49)
[2020-04-08] MEDS: Montelukast 10 MG Tab PO SCH (20:47)
[2020-04-09] MEDS: Dexamethasone 2 MG Tab PO SCH (08:14)
[2020-04-09] MEDS: Potassium Chloride 20 MEQ Tab.ER PO SCH (08:14)
[2020-04-09] MEDS: Formoterol/Mometasone 200-5 MCG 8.8 GM Inhaler IH SCH (08:15)
[2020-04-09] MEDS: Hydrochlorothiazide/Lisinopril 12.5-10 MG Tab PO SCH (08:15)
--- NOTE | 2020-04-09 17:50 | PCM.PN ---
- General Info Date of Service: 04/09/20 Subjective Update: Still coughing with deep breathing but no wheezing, diminished still on the right. Weaned down to 0.5 L but then back up to 1 L this afternoon. Chest x-ray repeated and under expanded so unable to tell if worsening or not. - Patient Data Vitals - Most Recent: Last Vital Signs Temp 98.3 F 04/09/20 15:04 Pulse 57 L 04/09/20 15:04 Resp 16 04/09/20 15:04 BP 110/68 04/09/20 15:04 Pulse Ox 92 L 04/09/20 15:04 Weight - Most Recent: 171 lb 12.8 oz Lab Results Last 24 Hours: Laboratory Results - last 24 hr 04/08/20 04/09/20 04/09/20 Range/Units 17:39 05:47 11:27 POC Glucose 139 H 89 136 H (74-100) mg/dL 04/09/20 Range/Units 16:44 POC Glucose 130 H (74-100) mg/dL Med Orders - Current: Current Medications Acetaminophen (Tylenol) 650 mg PO Q4H PRN PRN Reason: Fever Greater Than 101 Last Admin: 04/06/20 16:02 Dose: 650 mg Documented by: Albuterol (Ventolin Hfa) 0 gm INH Q4H PRN PRN Reason: Shortness of Breath Dexamethasone (Dexamethasone) 6 mg PO DAILY [facility] Stop: 04/14/20 09:01 Last Admin: 04/09/20 08:14 Dose: 6 mg Documented by: Enoxaparin Sodium (Lovenox) 40 mg SUBCUT Q24H [facility] Last Admin: 04/08/20 17:49 Dose: 40 mg Documented by: Lisinopril/HCTZ (Lisinopril/Hctz 10-12.5 Mg) 2 tab PO DAILY [facility] Last Admin: 04/09/20 08:15 Dose: 2 tab Documented by: Remdesivir 100 mg/ Sodium (Chloride) 100 mls @ 100 mls/hr IV Q24H [facility] Stop: 04/09/20 18:59 Last Admin: 04/08/20 17:43 Dose: 100 mls/hr Documented by: Mometasone Furoate/Formoterol Fumar (Dulera 200-5 Mcg) 2 puff IH DAILY [facility] Last Admin: 04/09/20 08:15 Dose: 2 puff Documented by: Montelukast Sodium (Singulair) 10 mg PO BEDTIME [facility] Last Admin: 04/08/20 20:47 Dose: 10 mg Documented by: Potassium Chloride (Klor-Con M20) 20 meq PO DAILY [facility] Last Admin: 04/09/20 08:14 Dose: 20 meq Documented by: Sodium Chloride (Saline Flush) 10 ml FLUSH ASDIRECTED PRN PRN Reason: Keep Vein Open Last Admin: 04/07/20 18:30 Dose: 10 ml Documented by: Discontinued Medications Dexamethasone (Dexamethasone) 6 mg PO DAILY [facility] Stop: 04/14/20 09:01 Last Admin: 04/07/20 08:36 Dose: 6 mg Documented by: Heparin Sodium (Porcine) (Heparin Sodium) 5,000 units SUBCUT ONETIME ONE Stop: 04/07/20 17:28 Last Admin: 04/07/20 18:13 Dose: 5,000 units Documented by: Remdesivir 200 mg/ Sodium (Chloride) 250 mls @ 250 mls/hr IV ONETIME ONE Stop: 04/05/20 17:04 Last Admin: 04/05/20 17:33 Dose: 250 mls/hr Documented by: Remdesivir 100 mg/ Sodium (Chloride) 100 mls @ 100 mls/hr IV Q24H [facility] Stop: 04/09/20 18:59 Last Admin: 04/07/20 17:27 Dose: 100 mls/hr Documented by: Sodium Chloride (Normal Saline) 1,000 mls @ 125 mls/hr IV ASDIRECTED [facility] Stop: 04/07/20 18:29 Last Infusion: 04/07/20 04:16 Dose: Infused Documented by: - Exam Quality Assessment: Supplemental Oxygen General: Alert, Oriented, Cooperative, No Acute Distress Lungs: Clear to Auscultation (BUL, LLL), Normal Respiratory Effort, Decreased Breath Sounds (RLL). No: Wheezing Cardiovascular: Regular Rate, Regular Rhythm GI/Abdominal Exam: Normal Bowel Sounds, Soft, Non-Tender, No Distention (Female) Exam: Deferred Extremities: No Pedal Edema Sepsis Event Note - Evaluation Sepsis Screening Result: No Definite Risk - Focused Exam Vital Signs: Vital Signs Temp Pulse Resp BP BP Pulse Ox Pulse Ox 04/09/20 15:04 98.3 F 57 L 16 110/68 92 L 04/09/20 08:33 90 L 04/09/20 08:19 96.9 F 51 L 18 132/76 90 L 04/09/20 08:15 132/76 - Problem List & Annotations (1) COVID-19 virus detected SNOMED Code(s): 3276210798024137 Code(s): U07.1 - COVID-19 Status: Acute Current Visit: Yes (2) Viral pneumonia SNOMED Code(s): 29965035 Code(s): J12.9 - VIRAL PNEUMONIA, UNSPECIFIED Status: Acute Current Visit: Yes (3) Asthma SNOMED Code(s): 904638802 Code(s): J45.909 - UNSPECIFIED ASTHMA, UNCOMPLICATED Status: Chronic Current Visit: Yes (4) Hypertension SNOMED Code(s): 40210790 Code(s): I10 - ESSENTIAL (PRIMARY) HYPERTENSION Status: Chronic Current Visit: Yes Qualifiers: Hypertension type: essential hypertension Qualified Code(s): I10 - Essential (primary) hypertension (5) Seasonal allergies SNOMED Code(s): 121916088 Code(s): J30.2 - OTHER SEASONAL ALLERGIC RHINITIS Status: Chronic Current Visit: Yes - Problem List Review Problem List Initiated/Reviewed/Updated: Yes - My Orders Last 24 Hours: My Active Orders 04/08/20 18:00 Remdesivir (Eua) [Remdesivir (EUA)] 100 mg Sodium Chloride 0.9% [Normal Saline] 100 ml IV Q24H 04/09/20 10:42 Chest 1V Frontal [CR] Routine 04/09/20 16:43 Incentive Spirometry [RT Incentive Spirometry] [RC] ASDIRECTED - Plan Plan:: 1. COVID viral pneumonia: Remdesivir 100 mg IV daily day 5. Dexamethasone 6 mg day 5. Oxygen therapy to keep sats >90%. Isolation precautions. Incentive spirometry. Home with oxygen tomorrow. 2. Asthma: Continue Dulera daily and Albuterol as needed. 3. Continue to monitor and adjust treatments as necessary.
[2020-04-09] MEDS: Enoxaparin 40 MG/0.4 ML Syringe SUBCUT SCH (18:00)
[2020-04-09] MEDS: REMDESIVIR 100 MG in Sodium Chloride 0.9% 100 ML IV SCH (18:00)
[2020-04-09] MEDS: Montelukast 10 MG Tab PO SCH (19:59)
[2020-04-09] MEDS: Sodium Chloride 0.9% 10 ML Syringe FLUSH PRN (20:00)
[2020-04-10] MEDS: Dexamethasone 2 MG Tab PO SCH (08:52)
[2020-04-10] MEDS: Potassium Chloride 20 MEQ Tab.ER PO SCH (08:53)
[2020-04-10] MEDS: Hydrochlorothiazide/Lisinopril 12.5-10 MG Tab PO SCH (08:53)
[2020-04-10 08:54] VITALS: BP 124/70
[2020-04-10] MEDS: Formoterol/Mometasone 200-5 MCG 8.8 GM Inhaler IH SCH (08:54)
[2020-04-10 09:07] VITALS: PULSE 50
--- NOTE | 2020-04-10 09:52 | CR ---
INDICATION: Followup pneumonia, COVID positive, in isolation. CHEST ONE VIEW: An AP upright portable view of the chest 04/09/20 was compared with 10/27/19 and 04/05/20. Relatively poor inspiration is noted emphasizing markings. There appears to be a slight decrease in infiltration at the lung bases bilaterally which could be better evaluated by a full inspiration examination, when clinically possible. No other change or new acute process was identified. MTDD
--- NOTE | 2020-04-10 17:53 | PCM.DCSUM1 ---
Discharge Summary - Hospital Course HPI Initial Comments: Tina started having sore throat, runny nose on 03/25, over the weekend developed vomiting and diarrhea which resolved Wednesday. Spoke with her PCP on Wednesday who advised her come in for drive-up COVID testing, her test results came back positive on 04/03. Had low grade fevers since last week, 99F but starting yesterday temp was up to 101F and seemed to break early this morning was 97F but then could feel it go up as day progressed. Since Wed pm she has been p rogressively getting more short of breath, wheezing, using her nebulizer treatments more often. Present to Walk-In clinic this afternoon, chest x-ray showed poor inspiration view but questionable infiltrate in right lower lobe. No other labs were done. She was saturating in the 80s in Walk-In, so direct admission to floor was done. History of Asthma. Diagnosis: Stroke: No - Discharge Data Discharge Date: 04/10/20 Discharge Disposition: Home, Self-Care 01 Condition: Stable - Referral to Home Health Primary Care Physician: PCP None - Discharge Diagnosis/Problem(s) (1) COVID-19 virus detected SNOMED Code(s): 1474352320779774 ICD Code: U07.1 - COVID-19 Status: Acute (2) Viral pneumonia SNOMED Code(s): 88545104 ICD Code: J12.9 - VIRAL PNEUMONIA, UNSPECIFIED Status: Acute (3) Asthma SNOMED Code(s): 642199175 ICD Code: J45.909 - UNSPECIFIED ASTHMA, UNCOMPLICATED Status: Chronic (4) Hypertension SNOMED Code(s): 86999178 ICD Code: I10 - ESSENTIAL (PRIMARY) HYPERTENSION Status: Chronic Qualifiers: Hypertension type: essential hypertension Qualified Code(s): I10 - Essential (primary) hypertension (5) Seasonal allergies SNOMED Code(s): 927991728 ICD Code: J30.2 - OTHER SEASONAL ALLERGIC RHINITIS Status: Chronic - Patient Summary/Data Hospital Course: Tina was admitted from clinic for increased shortness of breath, tested positive for Covid on . Labs were drawn, and she was started on Remdesivir and Dexamethasone, completed 5 day course for this. Breathing improved, unable to wean off oxygen, she would desaturate with activity. She will go home on 1 liter of oxygen. She continued her home inhalers. Started on incentive spirometry to help deep breathing, prevent atelectasis, stated this helped. Her labs remained stable on Remdesivir including her blood sugars on Dexamethasone. No fevers since admission. - Patient Instructions Diet: Usual Diet as Tolerated Activity: As Tolerated Driving: May Drive Today Showering/Bathing: May Shower Notify Provider of: Fever (chest pain, worsening shortness of breath) Other/Special Instructions: Follow up with Mary Jennings NP as needed. - Discharge Plan *PRESCRIPTION DRUG MONITORING PROGRAM REVIEWED*: Not Applicable *COPY OF PRESCRIPTION DRUG MONITORING REPORT IN PATIENT JANNA: Not Applicable Prescriptions/Med Rec: Aspirin [Lo-Dose Aspirin EC] 81 mg PO DAILY 30 Days #30 tablet. Home Medications: Home Meds Albuterol Sulfate [Albuterol Sulfate HFA] 2 puff IH Q4H PRN 06/23/13 [History] Lisinopril/Hydrochlorothiazide [Lisinopril-Hctz 20-25 mg Tab] 1 each PO DAILY 04/05/20 [History] Mometasone/Formoterol [Dulera 200 MCG/5 MCG] 2 inh INH DAILY 04/05/20 [History] Montelukast [Singulair] 10 mg PO BEDTIME 04/05/20 [History] Acetaminophen [Tylenol] 650 mg PO Q4H PRN tablet 04/10/20 [Rx] Aspirin [Lo-Dose Aspirin EC] 81 mg PO DAILY 30 Days #30 tablet. 04/10/20 [Rx] Oxygen Therapy Mode: Nasal Cannula Oxygen Flow Rate (L/min): 1 Maintain SPO2% less than: 95 Maintain SpO2% greater than: 88 Patient Handouts: COVID-19 Frequently Asked Questions, Enoxaparin injection, Home Oxygen Use, Adult, COVID-19: How to Protect Yourself and Others - CDC, Remdesivir, Dexamethasone tablets, Prevent the Spread of COVID-19 if You Are Sick - [facility] - Discharge Summary/Plan Comment DC Time >30 min.: No - General Info Date of Service: 04/10/20 Subjective Update: breathing improved, chest is not as tight. No fevers. Unable to wean off oxygen, will go home with oxygen from [facility]. - Patient Data Vitals - Most Recent: Last Vital Signs Temp 97.9 F 04/10/20 08:00 Pulse 50 L 04/10/20 08:00 Resp 16 04/10/20 08:00 BP 124/70 04/10/20 08:53 Pulse Ox 92 L 04/10/20 08:00 Weight - Most Recent: 171 lb 12.8 oz Lab Results - Last 24 hrs: Laboratory Results - last 24 hr 04/10/20 Range/Units 06:41 POC Glucose 87 (74-100) mg/dL Med Orders - Current: Current Medications Discontinued Medications Acetaminophen (Tylenol) 650 mg PO Q4H PRN PRN Reason: Fever Greater Than 101 Last Admin: 04/06/20 16:02 Dose: 650 mg Documented by: Albuterol (Ventolin Hfa) 0 gm INH Q4H PRN PRN Reason: Shortness of Breath Dexamethasone (Dexamethasone) 6 mg PO DAILY [facility] Stop: 04/14/20 09:01 Last Admin: 04/07/20 08:36 Dose: 6 mg Documented by: Dexamethasone (Dexamethasone) 6 mg PO DAILY [facility] Stop: 04/14/20 09:01 Last Admin: 04/10/20 08:52 Dose: 6 mg Documented by: Enoxaparin Sodium (Lovenox) 40 mg SUBCUT Q24H [facility] Last Admin: 04/09/20 18:00 Dose: 40 mg Documented by: Lisinopril/HCTZ (Lisinopril/Hctz 10-12.5 Mg) 2 tab PO DAILY [facility] Last Admin: 04/10/20 08:53 Dose: 2 tab Documented by: Heparin Sodium (Porcine) (Heparin Sodium) 5,000 units SUBCUT ONETIME ONE Stop: 04/07/20 17:28 Last Admin: 04/07/20 18:13 Dose: 5,000 units Documented by: Remdesivir 200 mg/ Sodium (Chloride) 250 mls @ 250 mls/hr IV ONETIME ONE Stop: 04/05/20 17:04 Last Admin: 04/05/20 17:33 Dose: 250 mls/hr Documented by: Remdesivir 100 mg/ Sodium (Chloride) 100 mls @ 100 mls/hr IV Q24H [facility] Stop: 04/09/20 18:59 Last Admin: 04/07/20 17:27 Dose: 100 mls/hr Documented by: Sodium Chloride (Normal Saline) 1,000 mls @ 125 mls/hr IV ASDIRECTED [facility] Stop: 04/07/20 18:29 Last Infusion: 04/07/20 04:16 Dose: Infused Documented by: Remdesivir 100 mg/ Sodium (Chloride) 100 mls @ 100 mls/hr IV Q24H [facility] Stop: 04/09/20 18:59 Last Admin: 04/09/20 18:00 Dose: 100 mls/hr Documented by: Mometasone Furoate/Formoterol Fumar (Dulera 200-5 Mcg) 2 puff IH DAILY [facility] Last Admin: 04/10/20 08:54 Dose: 2 puff Documented by: Montelukast Sodium (Singulair) 10 mg PO BEDTIME [facility] Last Admin: 04/09/20 19:59 Dose: 10 mg Documented by: Potassium Chloride (Klor-Con M20) 20 meq PO DAILY [facility] Last Admin: 04/10/20 08:53 Dose: 20 meq Documented by: Sodium Chloride (Saline Flush) 10 ml FLUSH ASDIRECTED PRN PRN Reason: Keep Vein Open Last Admin: 04/09/20 20:00 Dose: 10 ml Documented by: - Exam Quality Assessment: Reports: Supplemental Oxygen General: Reports: Alert, Oriented, Cooperative, No Acute Distress Lungs: Reports: Clear to Auscultation, Normal Respiratory Effort, Decreased Breath Sounds (bibasilar). Denies: Crackles, Wheezing Cardiovascular: Reports: Regular Rate, Regular Rhythm GI/Abdominal Exam: Normal Bowel Sounds, Soft, Non-Tender, No Distention
== END 2020-04-10 12:08 | disposition home or self-care (01) | DRG 137 ==
LOC: FB.EDOUT 16:14 → FB.MS 16:15 → FB.EDOUT 04-06 00:52 → FB.MS 04-06 00:57 → UNDOADMIN 04-06 00:57
PROVIDERS: ADMIT Family Medicine; ATTEND Family Medicine
PROC: 8E0ZXY6 Isolation (ICD-10-PCS; principal; 2020-04-05)
PROC: XW033E5 Introduction of Remdesivir Anti-infective into Peripheral Vein, Percutaneous Approach, New Technology Group 5 (ICD-10-PCS; 2020-04-05)
DX: U07.1 COVID-19 (principal); J12.89 Other viral pneumonia; J45.909 Unspecified asthma, uncomplicated; J30.2 Other seasonal allergic rhinitis; I10 Essential (primary) hypertension; Z88.1 Allergy status to other antibiotic agents; Z79.899 Other long term (current) drug therapy
CPT/HCPCS: 36415; 71045; 80053; 82962; 84132; 84450; 84460; 85025; 85379; 85730; 94150; 94760; A9270-GY; J1644; J1650; J7030; J7050; J8540

== ENCOUNTER 2024-02-29 08:14 | Day surgery (SDC) | payer BC ==
[2024-02-29] MEDS ORDERED: Sodium Chloride 0.9% 10 ML Syringe IV ONE (08:15)
[2024-02-29] MEDS ORDERED: Midazolam 1 MG/ML 2 ML SDV IV ONE (08:15)
[2024-02-29] MEDS ORDERED: fentaNYL 100 MCG/2 ML SDV IV ONE (08:15)
[2024-02-29] MEDS ORDERED: Lactated Ringers 1,000 ML IV PRN (08:30)
[2024-02-29] MEDS: Sodium Chloride 0.9% 10 ML Syringe FLUSH PRN (09:15)
[2024-02-29] MEDS: acetaZOLAMIDE 500 MG Cap.ER PO ONE (10:33)
[2024-03-01 16:38] VITALS: BP 125/68; PULSE 67
== END 2024-02-29 10:55 | disposition home or self-care (01) ==
LOC: FB.SDS 08:14
PROVIDERS: ATTEND Ophthalmology
DX: H26.9 Unspecified cataract (principal); I10 Essential (primary) hypertension; E66.9 Obesity, unspecified; J45.909 Unspecified asthma, uncomplicated; G47.30 Sleep apnea, unspecified; Z86.16 Personal history of COVID-19; Z88.8 Allergy status to other drugs, medicaments and biological substances; Z79.899 Other long term (current) drug therapy
CPT/HCPCS: 00142; A9270-GY; J2250; J3010; J3490; V2632

== ENCOUNTER → 2024-03-14 | Day surgery (SDC) | payer BC ==
[~2024-03-14] MED LIST: Lactated Ringers 1,000 ML IV PRN; Midazolam 1 MG/ML 2 ML SDV IV ONE; Sodium Chloride 0.9% 10 ML Syringe FLUSH PRN; Sodium Chloride 0.9% 10 ML Syringe IV ONE; fentaNYL 100 MCG/2 ML SDV IV ONE
[2024-03-14] MEDS: acetaZOLAMIDE 500 MG Cap.ER PO ONE (08:32)
[2024-03-14 14:18] VITALS: PULSE 67
[2024-03-14 14:19] VITALS: BP 110/73
== END ==
LOC: FB.SDS 06:23
PROVIDERS: ATTEND Ophthalmology
DX: H26.9 Unspecified cataract (principal); J45.909 Unspecified asthma, uncomplicated; I10 Essential (primary) hypertension; Z79.899 Other long term (current) drug therapy
CPT/HCPCS: 00142; A9270-GY; J2250; J3010; J3490; V2632